=== PATIENT | female | born 1945 | race Caucasian/White ===

== ENCOUNTER → 2023-07-07 08:12 | Outpatient (REF) | payer MEDICARE, BC, SELFPAY ==
[2023-07-07 08:45] LABS: % Basophils 0.8 % (0-2); % Eosinophils 1.5 % (0-6); % Immature Granulocytes 0.4 % (0-0.5); % Lymphocytes 34.8 % (20.5-51.1); % Monocytes 9.4 % (1.7-9.3); % Neutrophils 53.1 % (42.2-75.2); Absolute Eosinophils 0.1 10^3/uL (0-0.7); Absolute Lymphocytes 1.9 10^3/uL (1.2-3.4); Absolute Monocytes 0.5 10^3/uL (0.1-0.6); Absolute Neutrophils 2.8 10^3/uL (1.4-6.5); Hematocrit 40.4 % (37.0-47.0); Hemoglobin 14.1 g/dL (12.0-16.0); Mean Corp Hgb Conc. 34.9 g/dL (33.0-37.0); Mean Corpuscular Hgb 32.1 pg (27.0-31.0); Mean Platelet Volume 8.6 fL (7.4-10.4); Nucleated Red Blood Cells % 0 %; Platelet Count 291 10^3/uL (130-400); Red Blood Cell Count 4.39 10^6/uL (4.20-5.40); Red Cell Dist. Width 13.2 % (11.5-14.5); White Blood Cell Count 5.3 10^3/uL (4.8-10.8)
[2023-07-07 09:58] LABS: Glycohemoglobin (HgbA1c) 5.5 % (4.0-5.6)
[2023-07-07 10:19] LABS: ALT (SGPT) 26 U/L (0-35); AST (SGOT) 27 U/L (14-36); Albumin 3.8 g/dl (3.5-5.0); Alkaline Phosphatase 92 U/L (38-126); Blood Urea Nitrogen 15 mg/dl (7-17); Calcium 9.3 mg/dl (8.4-10.2); Carbon Dioxide 25 mmol/L (22-30); Chloride 108 mmol/L (98-107); Glucose 94 mg/dl (70-99); HDL Cholesterol 68 mg/dl; LDL Cholesterol, Calculated 74 mg/dl; Potassium 3.9 mmol/L (3.5-5.1); Sodium 139 mmol/L (135-145); Total Bilirubin 0.8 mg/dl (0.2-1.3); Total Cholesterol 173 mg/dl (50-199); Total Protein 6.4 g/dl (6.3-8.2); Triglyceride 159 mg/dl (10-149); Very Low Density Lipoprotein 31 mg/dl (0-30); eGFR > 60.00
[2023-07-07 10:33] LABS: Free T4 1.29 ng/dl (0.78-2.19)
[2023-07-07 10:46] LABS: TSH 1.06 uIU/ml (0.47-4.68)
== END ==
LOC: REG 08:12
PROVIDERS: ATTENDING PHYSICIAN Internal Medicine
DX: R73.01 Impaired fasting glucose (principal); E03.8 Other specified hypothyroidism; E78.1 Pure hyperglyceridemia; I10 Essential (primary) hypertension
CPT/HCPCS: 36415; 80053; 80061; 83036; 84439; 84443; 85025

== ENCOUNTER → 2023-11-03 08:35 | Outpatient (REF) | payer MEDICARE, BC, SELFPAY ==
[2023-11-03 09:41] LABS: ALT (SGPT) 17 U/L (0-35); AST (SGOT) 22 U/L (14-36); Albumin 4.2 g/dl (3.5-5.0); Alkaline Phosphatase 84 U/L (38-126); Blood Urea Nitrogen 16 mg/dl (7-17); Calcium 9.6 mg/dl (8.4-10.2); Carbon Dioxide 28 mmol/L (22-30); Chloride 106 mmol/L (98-107); Glucose 92 mg/dl (70-99); Magnesium 2.1 mg/dl (1.6-2.3); Phosphorus 3.9 mg/dl (2.5-4.5); Potassium 4.2 mmol/L (3.5-5.1); Sodium 140 mmol/L (135-145); Total Protein 6.7 g/dl (6.3-8.2); eGFR > 60.00
[2023-11-03 09:55] LABS: Free T4 1.13 ng/dl (0.78-2.19); Vitamin D, 25-OH*** 38.1 ng/mL (30-80)
[2023-11-03 10:08] LABS: TSH 2.66 uIU/ml (0.47-4.68)
== END ==
LOC: REG 08:35
PROVIDERS: ATTENDING PHYSICIAN Internal Medicine Nephrology; FAMILY PHYSICIAN Internal Medicine; REFERRING PHYSICIAN Internal Medicine Cardiovascular Disease
DX: E55.9 Vitamin D deficiency, unspecified (principal); M85.89 Other specified disorders of bone density and structure, multiple sites; I48.0 Paroxysmal atrial fibrillation
CPT/HCPCS: 36415; 80053; 82306; 83735; 83970; 84100; 84439; 84443

== ENCOUNTER 2023-11-16 07:54 | Outpatient (RCR) | payer MEDICARE, BC, SELFPAY | END 2023-11-16 23:59 | disposition home or self-care (01) | LOC: RPT 07:54 | PROVIDERS: ATTENDING PHYSICIAN Internal Medicine Gastroenterology; FAMILY PHYSICIAN Internal Medicine | DX: M62.89 Other specified disorders of muscle (principal); K59.00 Constipation, unspecified | CPT/HCPCS: 97163; 97530 ==

== ENCOUNTER → 2024-04-03 14:15 | Outpatient (REF) | payer MEDICARE, BC, SELFPAY | LOC: RAD 14:15 | PROVIDERS: ATTENDING PHYSICIAN Internal Medicine | DX: I10 Essential (primary) hypertension (principal); I73.9 Peripheral vascular disease, unspecified | CPT/HCPCS: 93922; 93925 ==

== ENCOUNTER → 2024-04-25 08:20 | Outpatient (REF) | payer MEDICARE, BC, SELFPAY ==
[2024-04-25 09:10] LABS: % Basophils 0.8 % (0-2); % Eosinophils 1.5 % (0-6); % Immature Granulocytes 0.2 % (0-0.5); % Lymphocytes 34.5 % (20.5-51.1); % Monocytes 9.2 % (1.7-9.3); % Neutrophils 53.8 % (42.2-75.2); Absolute Eosinophils 0.1 10^3/uL (0-0.7); Absolute Lymphocytes 1.8 10^3/uL (1.2-3.4); Absolute Monocytes 0.5 10^3/uL (0.1-0.6); Absolute Neutrophils 2.8 10^3/uL (1.4-6.5); Hematocrit 42.7 % (37.0-47.0); Hemoglobin 14.5 g/dL (12.0-16.0); Mean Corpuscular Volume 94.3 fL (81.0-99.0); Nucleated Red Blood Cells % 0 %; Platelet Count 268 10^3/uL (130-400); Red Blood Cell Count 4.53 10^6/uL (4.20-5.40); Red Cell Dist. Width 13.1 % (11.5-14.5); White Blood Cell Count 5.2 10^3/uL (4.8-10.8)
[2024-04-25 10:38] LABS: ALT (SGPT) 21 U/L (0-35); AST (SGOT) 24 U/L (14-36); Albumin 4.3 g/dl (3.5-5.0); Alkaline Phosphatase 75 U/L (38-126); Blood Urea Nitrogen 12 mg/dl (7-17); Calcium 9.3 mg/dl (8.4-10.2); Carbon Dioxide 26 mmol/L (22-30); Chloride 106 mmol/L (98-107); Glucose 95 mg/dl (70-99); Potassium 4.1 mmol/L (3.5-5.1); Sodium 145 mmol/L (135-145); Total Bilirubin 0.8 mg/dl (0.2-1.3); Total Protein 6.8 g/dl (6.3-8.2); eGFR > 60.00
[2024-04-25 13:32] LABS: TSH 3.26 uIU/ml (0.47-4.68)
== END ==
LOC: REG 08:20
PROVIDERS: REFERRING PHYSICIAN Internal Medicine
DX: I48.91 Unspecified atrial fibrillation (principal)
CPT/HCPCS: 36415; 80053; 84443; 85025

== ENCOUNTER 2024-10-30 12:46 | Outpatient (RCR) | payer MEDICARE, BC, SELFPAY | END 2024-10-30 23:59 | disposition home or self-care (01) | LOC: RPT 12:46 | PROVIDERS: ATTENDING PHYSICIAN Internal Medicine Gastroenterology; FAMILY PHYSICIAN Internal Medicine | DX: M62.89 Other specified disorders of muscle (principal); Z73.6 Limitation of activities due to disability | CPT/HCPCS: 97161; 97530 ==

== ENCOUNTER 2024-12-07 11:13 | Outpatient (RCR) | payer MEDICARE, BC, SELFPAY | END 2024-12-07 23:59 | disposition home or self-care (01) | LOC: RPT 11:13 | PROVIDERS: ATTENDING PHYSICIAN Internal Medicine Gastroenterology; FAMILY PHYSICIAN Internal Medicine | DX: M62.89 Other specified disorders of muscle (principal); Z73.6 Limitation of activities due to disability; M54.16 Radiculopathy, lumbar region; M54.50 Low back pain, unspecified | CPT/HCPCS: 72148; 97110; 97140; 97164 ==

== ENCOUNTER → 2024-12-12 10:58 | Outpatient (REF) | payer MEDICARE, BC, SELFPAY ==
[2024-12-12 13:33] LABS: ALT (SGPT) 20 U/L (0-35); AST (SGOT) 21 U/L (14-36); Albumin 4.4 g/dl (3.5-5.0); Alkaline Phosphatase 83 U/L (38-126); Blood Urea Nitrogen 15 mg/dl (7-17); Calcium 9.5 mg/dl (8.4-10.2); Carbon Dioxide 26 mmol/L (22-30); Chloride 106 mmol/L (98-107); Glucose 94 mg/dl (70-99); Potassium 4.4 mmol/L (3.5-5.1); Sodium 140 mmol/L (135-145); Total Protein 6.9 g/dl (6.3-8.2); eGFR > 60.00
[2024-12-12 14:09] LABS: TSH 1.22 uIU/ml (0.47-4.68)
== END ==
LOC: REG 10:58
PROVIDERS: ATTENDING PHYSICIAN Physician Assistant Medical; FAMILY PHYSICIAN Internal Medicine
DX: Z79.899 Other long term (current) drug therapy (principal); I48.19 Other persistent atrial fibrillation; Z79.01 Long term (current) use of anticoagulants
CPT/HCPCS: 36415; 80053; 84443

== ENCOUNTER → 2024-12-13 13:10 | Outpatient (REF) | payer MEDICARE, BC, SELFPAY | LOC: RCS 13:10 | PROVIDERS: ATTENDING PHYSICIAN Physician Assistant; FAMILY PHYSICIAN Internal Medicine | DX: I48.19 Other persistent atrial fibrillation (principal); Z79.899 Other long term (current) drug therapy | CPT/HCPCS: 93005 ==

== ENCOUNTER → 2025-01-01 10:05 | Outpatient (REF) | payer MEDICARE, BC, SELFPAY ==
[2025-01-01 11:03] LABS: Hematocrit 40.6 % (37.0-47.0); Hemoglobin 13.8 g/dL (12.0-16.0); Mean Corp Hgb Conc. 34.0 g/dL (33.0-37.0); Mean Corpuscular Volume 93.3 fL (81.0-99.0); Nucleated Red Blood Cells % 0 %; Platelet Count 265 10^3/uL (130-400); Red Cell Dist. Width 13.2 % (11.5-14.5)
== END ==
LOC: REG 10:05
PROVIDERS: ATTENDING PHYSICIAN Physician Assistant
DX: I48.19 Other persistent atrial fibrillation (principal); Z79.899 Other long term (current) drug therapy
CPT/HCPCS: 36415; 85025

== ENCOUNTER 2025-01-05 13:55 | Outpatient (RCR) | payer MEDICARE, BC, SELFPAY | END 2025-01-05 23:59 | disposition home or self-care (01) | LOC: RPT 13:55 | PROVIDERS: ATTENDING PHYSICIAN Internal Medicine Gastroenterology; FAMILY PHYSICIAN Internal Medicine | DX: M62.89 Other specified disorders of muscle (principal); M54.16 Radiculopathy, lumbar region; M54.50 Low back pain, unspecified; Z73.6 Limitation of activities due to disability | CPT/HCPCS: 97110; 97140 ==

== ENCOUNTER 2025-01-31 14:58 | Outpatient (RCR) | payer MEDICARE, BC, SELFPAY | END 2025-01-31 23:59 | disposition home or self-care (01) | LOC: RPT 14:58 | PROVIDERS: ATTENDING PHYSICIAN Internal Medicine Gastroenterology; FAMILY PHYSICIAN Internal Medicine | DX: M62.89 Other specified disorders of muscle (principal); M54.16 Radiculopathy, lumbar region; M54.50 Low back pain, unspecified; Z73.6 Limitation of activities due to disability | CPT/HCPCS: 97110; 97140 ==

== ENCOUNTER 2025-02-13 10:19 | Outpatient (RCR) | payer MEDICARE, BC, SELFPAY | END 2025-02-13 23:59 | disposition home or self-care (01) | LOC: RPT 10:19 | PROVIDERS: ATTENDING PHYSICIAN Internal Medicine Gastroenterology; FAMILY PHYSICIAN Internal Medicine | DX: M62.89 Other specified disorders of muscle (principal); M54.16 Radiculopathy, lumbar region; M54.50 Low back pain, unspecified; Z73.6 Limitation of activities due to disability | CPT/HCPCS: 97110; 97140 ==

== ENCOUNTER 2025-02-26 19:31 | Emergency (ER) | payer MEDICARE, BC, SELFPAY ==
[2025-02-26 19:42] VITALS: BP 132/92
--- NOTE | 2025-02-26 21:08 | ED.GENMED ---
History of Present Illness
General
Chief Complaint: Skin Surface Trauma
Source: patient
Exam Limitations: none
Time Seen by Provider: 02/26/25 20:42
History of Present Illness
History of Present Illness:
Patient hit the back of her hand on a door. Flap laceration. Bleeding. On Eliquis. Last 2017. No other injury or complaint
Past History
Past History
ED Past Medical History: Arrthythmia (afib), GERD and Other (Sleep apnea on CPAP)
ED Past Surgical History: Cardiac (Repeat pulmonary vein isolation ablation with pulmonary veins isolated and additional radiofrequency June 2019, cardioversion August 2020), Gynecological, Tonsilectomy and Other (implanted cardiac loop)
Social History
Tobacco: Non-smoker
Living: with family
Phy Exam
Physical Exam
Physical Exam:
General: Nontoxic appearing in no distress
Skin: Warm and dry, no rash
Neuro: Alert, nontoxic, grossly nonfocal
Psychiatric: Good eye contact and appropriate
Musculoskeletal: 2 flap-like lacerations dorsal hand. Mild bleeding. Motor or sensory neurovascular intact. Good extension of the digits. Good capillary refill. No tendon visible.
Course
Vital Signs
Initial and Last Documented VS:
Initial Vital Signs
Temp Pulse Resp BP Pulse Ox
98.0 F 100 18 132/92 96
02/26/25 19:42 02/26/25 19:42 02/26/25 19:42 02/26/25 19:42 02/26/25 19:42
Last Documented Vital Signs
Temp Pulse Resp BP Pulse Ox
98.0 F 100 18 132/92 96
02/26/25 19:42 02/26/25 19:42 02/26/25 19:42 02/26/25 19:42 02/26/25 19:42
Procedures
Laceration Closure
Dorsal left hand:
Status of Wound: clean
Size of Wound in cm: 4
Description of Wound Edges: sharp
Preparation: cleaned with saline
Revision/Debridement: routine- no revision
Wound exploration: explored to base- no FB and no tendon involvement
Type of Closure: Dermabond-skin glue (Mesh)
*Pulse Oximetry
SaO2: 96
Oxygen Mode of Delivery: Room air
Patient hypoxic: no (96)
*Critical Care Note
Total Time (30-74mins, 75-104mins- exclusive of procedures): Not Applicable
Update Note
Update Note:
Wound was irrigated copiously. Dermabond mesh applied. No bony tenderness. No indication for x-ray. Motor or sensory neurovascular intact
ED Attending Note
-
Portions of this chart may have been created with voice recognition software.� Occasional wrong word or��sound alike� substitutions may have occurred due to the inherent limitations of voice recognition software.
Discharge Plan
Departure
Patient Disposition: Home (Routine Discharge)
Date of Disposition: 02/26/25
Time of Disposition: 21:10
Patient with high blood pressure during this ER visit?: Yes
Discharge Problem:
Flap laceration dorsal left hand
Instructions: Laceration Repair With Glue (DC), BLOOD PRESSURE
Prescriptions:
No Action
apixaban [Eliquis] 5 MG tablet
5 mg PO BID
azelastine 1 SPRAY aerosol,spray
1 spray intranasal BID
timolol maleate 1 DROP drops
1 drp BOTH EYES DAILY
metoprolol succinate 50 MG tablet extended release 24 hr
50 mg PO BID
esomeprazole magnesium [Nexium] 40 MG capsule,delayed release(DR/EC)
40 mg PO DAILY
dofetilide 250 MCG capsule
250 mcg PO BID
Referrals:
Bon Chanel MD [Family Provider, Internal Medicine] - Follow up in 2-3 days
Interventions
Interventions:
*Risk Screen - Suicide Last Done: 02/26/25 19:38
*General Assessment Last Done: 02/26/25 19:38
*Neglect/Abuse Screening Last Done: 02/26/25 19:38
*ED- Fall Risk Assessment Last Done: 02/26/25 19:38
*ED COVID-19 Vaccine History Last Done: 02/26/25 19:38
*ED Influenza Vaccine History Last Done: 02/26/25 19:38
Discharge Date and Time
Print Language: GEORGIAN
== END 2025-02-26 21:25 | disposition home or self-care (01) ==
LOC: EMR 19:31
PROVIDERS: EMERGENCY PHYSICIAN Emergency Medicine; FAMILY PHYSICIAN Internal Medicine
DX: S61.412A Laceration without foreign body of left hand, initial encounter (principal); W22.8XXA Striking against or struck by other objects, initial encounter; R03.0 Elevated blood-pressure reading, without diagnosis of hypertension; I48.91 Unspecified atrial fibrillation; G47.30 Sleep apnea, unspecified; K21.9 Gastro-esophageal reflux disease without esophagitis; Z79.01 Long term (current) use of anticoagulants
CPT/HCPCS: 99282; 12002

== ENCOUNTER 2025-03-19 10:14 | Outpatient (RCR) | payer MEDICARE, BC, SELFPAY | END 2025-03-28 23:59 | disposition home or self-care (01) | LOC: RPT 10:14 | PROVIDERS: ATTENDING PHYSICIAN Internal Medicine Gastroenterology; FAMILY PHYSICIAN Internal Medicine | DX: M62.89 Other specified disorders of muscle (principal); M54.16 Radiculopathy, lumbar region; M54.50 Low back pain, unspecified; Z73.6 Limitation of activities due to disability | CPT/HCPCS: 97110; 97140 ==

== ENCOUNTER 2025-04-12 13:27 | Outpatient (RCR) | payer MEDICARE, BC, SELFPAY | END 2025-04-13 07:24 | disposition home or self-care (01) | LOC: RPT 13:27 | PROVIDERS: ATTENDING PHYSICIAN Internal Medicine Gastroenterology; FAMILY PHYSICIAN Internal Medicine | DX: M62.89 Other specified disorders of muscle (principal); M54.16 Radiculopathy, lumbar region; M54.50 Low back pain, unspecified; Z73.6 Limitation of activities due to disability | CPT/HCPCS: 97110; 97140 ==